=== PATIENT | female | born 1945 | race Caucasian/White ===

== ENCOUNTER → 2018-02-23 | Outpatient (CLI) | payer MEDICARE ==
[~2018-02-23] MED LIST: ACET325T14 PO; ATOR20TA37 PO; BISA5TAB38 PO; CYCL5TAB PO; FURO-93 PO; FURO20TA3 PO; GLUC1TAB21 PO; HYDR-3237 PO; LOSA100T7 PO; MELO15TA24 PO; METAMUCIL425 GM PO; METO200T47 PO; MULT1CAP19 PO; NAPR220C2 PO; OMEG1200 PO; POLY17PO5 PO; POTA10TA11 PO; POTA20PA31 PO; RIVA10TA PO; SENN1TAB67 PO; SIMV20TA3 PO; TRAZ-137 PO; TRAZ50TA66 PO; VALS320T2 PO; VERA240C2 PO; VERA240T86 PO
== END | disposition home or self-care (01) ==
LOC: CVU 09:18
PROVIDERS: ATTEND Internal Medicine Cardiovascular Disease
DX: I07.1 Rheumatic tricuspid insufficiency (principal); I10 Essential (primary) hypertension; E78.5 Hyperlipidemia, unspecified
CPT/HCPCS: 93306